=== PATIENT | female | born 1970 | race Native Hawaiian/Other Pacific Islander ===

== ENCOUNTER 2016-05-31 19:50 | Emergency (ER) | payer SELFPAY ==
[~2016-05-31] VITALS: Ht 149.9 cm; Wt 61.4 kg
[2016-05-31 20:13] VITALS: BP 131/79; RESP 15; O2SAT 98
--- NOTE | 2016-05-31 21:47 | ED.REPORT ---
HPI-Facial Injury Date of Service May 31, 2016 ED Provider: Raheem Levy DO Pt is a 45 y.o. female who presents to the ED c/o sinus pain onset 3 days ago. Pt reports associated facial swelling, nasal congestion, and nasal discharge. She denies fever. Nursing Notes Stated Complaint: SINUS PRESSURE/RIGHT SIDE FACE HURTS Chief Complaint: ENT & Mouth Nursing Notes Reviewed: Yes Allergies: Coded Allergies: No Known Allergies (Unverified , 05/31/16) General Time Seen by Provider: 21:46 Chief Complaint Sinus pain Hx Obtained From: Patient Arrived By: Walk-in Onset Occurred: 3 days ago Symptom Duration: Since onset Progression Since Onset: Gradually worsening Quality: Painful, Pressure Severity: Current: Severe Past Medical History Past Medical History Healthy Denies: Congestive heart failure, Hypertension Past Surgical History None reported Social History Other Social History: Ambulatory Status Independent Review of Systems Facial swelling Nasal discharge Constitutional: Denies: Chills, Fever Ears / Nose / Throat: Reports: Nasal congestion, Sinus problem Complete sys rev & neg: except as marked. GI: Denies: Diarrhea, Nausea, Vomiting Physical Exam Initial Vital Signs Vital Signs (First) Date Time Temp Pulse Resp B/P Pulse Ox O2 Delivery O2 Flow Rate FiO2 05/31/16 20:13 36.7 89 15 131/79 98 Room Air Initial VS: Reviewed Respiratory: Breath sounds normal, No respiratory distress Cardiovascular: Regular rate & rhythm, Intact distal pulses Abdomen / GI: No distention Extremities: Vascular intact, Neuro intact Skin: Warm, Dry, No cyanosis Psychiatric: Mood/affect normal, Behavior normal, Normal thought content Head / Eyes: Atraumatic, Normocephalic, PERRL ENT: Atraumatic, Airway patent Nose: Positive: Discharge nasal purulent Sinus: Positive: Tender maxillary R (to percussion) Neck: Atraumatic Neurologic: Oriented X3, Speech NL, No motor deficits General/Constitutional: Awake, Alert, Well appearing, Well developed, Well hydrated, Well nourished, Not toxic appearing Appearance / Presentation: Positive: Uncomfortable Re-Eval/Medical Decision Med Decision/Clinical Course Healthy 45-year-old female with classic right maxillary mucopurulent sinusitis. No evidence of intracranial extension on physical examination. No signs of meningitis. I will place her on a 7 day course of antibiotics and symptomatic care. Recommended close outpatient follow-up. Source of Hx: Old records Re-Evaluation/Progress : Time of Eval: 21:58 Re-Evaluation/Progress Note: Physical exam performed. Discussed plan for discharge, pt understands and agrees with plan. Counseled Regarding: Diagnosis, Need for follow-up, When/why to return to ED Discharge & Departure Impression: Primary Impression: Sinusitis Disposition: Home Discharge Condition All VS Reviewed: Yes Condition: Improved Patient Instructions: Sinusitis (ED) Additional Instructions: You were seen here today for sinusitis. Take Augmentin twice daily for the next 7 days. Take Vicoprofen 1 every 6 hours as needed for pain. Do not drink, drive , or take additional NSAIDS while on Vicoprofen. I recommend you purchase over- the-counter Tylenol Cold Preparation, be conscious of how much acetaminophen you are taking and take no more than 4grams per day. Also purchase Flonase nasal spray and use twice daily as directed. Follow-up with your primary care provider next week. Return if you develop a fever or any new or worsening symptoms. Referrals: [facility] (PCP) Varghese Attestation Portions of this note were transcribed by Merrick Bowser. I, Dr. Levy personally performed the history, physical exam and medical decision-making; I reviewed and confirmed the accuracy of the information in the transcribed note. Signed by : Varghese Garcia, 05/31/16 and [id number]. copies to: [facility] Todd P DO May 31, 2016 21:47 MERRICK BOWSER May 31, 2016 22:00
[2016-05-31 21:56] VITALS: BP 147/87; PULSE 94; RESP 20; O2SAT 97
[2016-05-31] MEDS ORDERED: Amoxicillin-Clav 875-125 mg Tablet PO ONE (22:00)
[2016-05-31] MEDS ORDERED: HYDROcodone-APAP 5-325 mg Tablet PO ONE (22:00)
== END 2016-05-31 22:27 | disposition home or self-care (01) ==
LOC: SED 19:50
DX: J32.9 Chronic sinusitis, unspecified (principal)